=== PATIENT | female | born 1990 | race Caucasian/White ===

== ENCOUNTER 2017-01-09 16:32 | Emergency (ER) | payer SELFPAY ==
[2017-01-09 16:57] VITALS: BP 121/70
[2017-01-09] MEDS ORDERED: Ketorolac INJ* 60 MG/2 ML VIAL IM ONE (17:23)
--- NOTE | 2017-01-09 17:53 | UC ---
Lower Extremity/Ankle HPI - HPI Summary HPI Summary: pt presents with c/o right foot pain and swelling that began 1-2 wqeeks ago. 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 Pt reports today she was stretching her right foot and she heard a "pop" and had instant onset of pain to dorsal aspect of right foot. pt unable to move right toes secondary to pain. - History of Current Complaint Chief Complaint: UCLowerExtremity Stated Complaint: RT FOOT INJURY *7 DAYS Time Seen by Provider: 01/09/17 17:01 Hx Obtained From: Patient Hx Last Menstrual Period: 01/09/17 ?: No Onset/Duration: Gradual Onset, Lasting Days Severity Initially: Mild Severity Currently: Moderate Aggravating Factor(s): Standing, Ambulation Alleviating Factor(s): Rest, Elevation Able to Bear Weight: Yes - minimal - Allergies/Home Medications Allergies/Adverse Reactions: Allergies Allergy/AdvReac Type Severity Reaction Status Date / Time Tramadol Allergy See Comment Verified 01/09/17 16:51 Home Medications: Home Medications Escitalopram Oxalate [Lexapro 10 mg] 10 mg PO DAILY 01/09/17 [History Confirmed 01/09/17] Naproxen TAB* [Naprosyn 250 mg TAB*] 250 mg PO BID 01/09/17 [History Confirmed 01/09/17] Omeprazole CAP* [Prilosec CAP* 20 MG] 20 mg PO DAILY 01/09/17 [History Confirmed 01/09/17] PMH/Surg Hx/FS Hx/Imm Hx Previously Healthy: Yes - Surgical History Surgical History: Yes Surgery Procedure, Year, and Place: appy - Family History Known Family History: Positive: Other - positive for FM for arthralgia - Social History Alcohol Use: None Substance Use Type: None Substance Use Comment - Amount & Last Used: 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, sober 2 yrs Smoking Status (MU): Light Every Day Tobacco Smoker Type: Cigarettes Amount Used/How Often: 1/2 PPD Length of Time of Smoking/Using Tobacco: 15 yrs Review of Systems Constitutional: Negative Skin: Negative Eyes: Negative ENT: Negative Respiratory: Negative Cardiovascular: Negative Gastrointestinal: Negative Genitourinary: Negative Motor: Decreased ROM - right distal foot Neurovascular: Negative Musculoskeletal: Arthralgia, Edema - right foot, Myalgia Neurological: Negative Psychological: Negative All Other Systems Reviewed And Are Negative: Yes Physical Exam Triage Information Reviewed: Yes Appearance: Well-Appearing Vital Signs: Initial Vital Signs Temp 99.5 F 01/09/17 16:53 Pulse 102 01/09/17 16:53 Resp 18 01/09/17 16:53 BP 121/70 01/09/17 16:53 Pulse Ox 100 01/09/17 16:53 Vital Signs Reviewed: Yes Eye Exam: Normal Neck exam: Normal Respiratory Exam: Normal Musculoskeletal Exam: Other Musculoskeletal: Positive: Strength Limited @ - right foot, ROM Limited @ - right distal foot, Edema @ - right distal foot/toes, Neurological Exam: Normal Psychological Exam: Normal Skin Exam: Normal Lower Extremity Course/Dx - Differential Dx/Diagnosis Differential Diagnosis/HQI/PQRI: Sprain, Strain, Tendonitis Provider Diagnoses: right foot tendonitis Discharge - Discharge Plan Condition: Stable Disposition: HOME Prescriptions: predniSONE TAB* [Deltasone TAB*] 30 mg PO DAILY #12 tab Patient Education Materials: Arthralgia (ED), Tendinitis (ED) Forms: *Work Release Referrals: [facility] [place] [facility] [Outside] David Craig MD [Medical Doctor] - No Primary Care Phys,NOPCP [Primary Care Provider] -
== END 2017-01-09 17:56 | disposition home or self-care (01) ==
LOC: UCCORT 16:32
DX: M77.51 Other enthesopathy of right foot and ankle (principal); Z88.5 Allergy status to narcotic agent; F17.210 Nicotine dependence, cigarettes, uncomplicated
CPT/HCPCS: 96372; 99203; G0463; J1885

== ENCOUNTER 2017-03-27 10:04 | Emergency (ER) | payer SELFPAY ==
[2017-03-27 10:50] VITALS: BP 111/67
--- NOTE | 2017-03-27 11:08 | UC ---
Skin Complaint HPI - HPI Summary HPI Summary: Since yesterday there has been some right axilla tenderness. It has become worse today. - History of Current Complaint Chief Complaint: UCSkin Time Seen by Provider: 03/27/17 10:48 Stated Complaint: RIGHT ARMPIT BUMP/PAIN Hx Obtained From: Patient Hx Last Menstrual Period: 03/09/17 ?: No Onset/Duration: Gradual Onset, Lasting Hours Skin Exposure Onset/Duration: Days Ago Timing: Constant Onset Severity: Mild Current Severity: Moderate Location: Discrete Character: Pain, Redness, Raised, Painful Aggravating: Touch Alleviating: Nothing Associated Signs & Symptoms: Positive: Tenderness. Negative: Nausea, Vomiting, Diaphoresis, Weakness, Pallor, Shivering, Fever, Chills, Red Streaks - Allergy/Home Medications Allergies/Adverse Reactions: Allergies Allergy/AdvReac Type Severity Reaction Status Date / Time Tramadol Allergy See Comment Verified 03/27/17 10:23 Review of Systems Skin: Other - abscess. All Other Systems Reviewed And Are Negative: Yes PMH/Surg Hx/FS Hx/Imm Hx Previously Healthy: No - no prior abscess. 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, sober 2 yrs Smoking Status (MU): Light Every Day Tobacco Smoker Type: Cigarettes Amount Used/How Often: 1/2 PPD Length of Time of Smoking/Using Tobacco: 15 yrs Physical Exam Triage Information Reviewed: Yes Appearance: Well-Appearing, No Pain Distress, Well-Nourished Vital Signs: Initial Vital Signs Temp 98.4 F 03/27/17 10:17 Pulse 72 03/27/17 10:17 Resp 16 03/27/17 10:17 BP 111/67 03/27/17 10:17 Eye Exam: Normal ENT Exam: Normal Neck exam: Normal Respiratory Exam: Normal Cardiovascular Exam: Normal Abdominal Exam: Normal Musculoskeletal Exam: Normal Neurological Exam: Normal Psychological Exam: Normal Skin Exam: Other - right axilla, pea sized tender firm nodule without fluctuance. no streaking or crepitus. no surrounding or spreading redness. Course/Dx - Course Course Of Treatment: right axilla infected lymph node. no signs of drainable abcess thus far. she was made aware and understood that this may progress and need drainage if it does not go away with warm packs and antibiotics. she will have this rechecked in 2 days. - Differential Diagnoses - Skin Complaint Differential Diagnoses: Abscess, Allergic Reaction, Anaphylaxis, Angioedema, Cellulitis - Diagnoses Provider Diagnoses: right axillar cellulitis vs infected lymph node. Discharge - Discharge Plan Condition: Good Disposition: HOME Prescriptions: Sulfamethox/Trimethoprim DS* [Bactrim DS 800/160 TAB*] 1 tab PO BID #20 tab Patient Education Materials: Abscess (ED) Forms: *Work Release Referrals: Cisco Scott MD [Primary Care Provider] - If Needed
== END 2017-03-27 11:07 | disposition home or self-care (01) ==
LOC: UCCORT 10:04
DX: M79.621 Pain in right upper arm (principal); R22.31 Localized swelling, mass and lump, right upper limb; Z88.5 Allergy status to narcotic agent
CPT/HCPCS: 99212; G0463

== ENCOUNTER 2017-10-16 10:42 | Emergency (ER) | payer OTHER ==
[2017-10-16 11:00] VITALS: BP 127/66
--- NOTE | 2017-10-16 11:24 | RAD ---
INDICATION: Fall. Left foot pain COMPARISON: None TECHNIQUE: AP, lateral, and oblique views were obtained. FINDINGS: There is no acute bony change. There is mild degenerative change about the tarsometatarsal articulations. There is a minor hallux valgus deformity. The soft tissues are normal. IMPRESSION: NO ACUTE BONY FINDINGS
--- NOTE | 2017-10-16 11:25 | UC ---
Lower Extremity/Ankle HPI - HPI Summary HPI Summary: Pt presents with c/o lft foot pain s/p having a large dresser fall while carrying it on her left distal foot. C/O pain in left distal tarsals 2-3. - History of Current Complaint Chief Complaint: UCLowerExtremity Stated Complaint: LFT FOOT INJURY Time Seen by Provider: 10/16/17 10:49 Hx Obtained From: Patient Hx Last Menstrual Period: 01/09/17 ?: No Onset/Duration: Sudden Onset Pain Intensity: 6 Aggravating Factor(s): Standing, Ambulation Alleviating Factor(s): Rest, Elevation Able to Bear Weight: Yes - Risk Factors Gout Risk Factors: Negative - Allergies/Home Medications Allergies/Adverse Reactions: Allergies Allergy/AdvReac Type Severity Reaction Status Date / Time tramadol Allergy See Comment Verified 10/16/17 11:00 Home Medications: Home Medications Meloxicam 7.5 mg PO 10/16/17 [History] Multivitamin [Multivitamins] 1 cap PO 10/16/17 [History] PMH/Surg Hx/FS Hx/Imm Hx Previously Healthy: Yes - Surgical History Surgical History: Yes Surgery Procedure, Year, and Place: appy - Family History Known Family History: Positive: Other - positive for FMH for arthralgia - Social History Occupation: Works From/At Home Lives: With Family Alcohol Use: None Substance Use Type: None Substance Use Comment - Amount & Last Used: 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, sober 2 yrs Smoking Status (MU): Light Every Day Tobacco Smoker Type: Cigarettes Amount Used/How Often: 1/2 PPD Length of Time of Smoking/Using Tobacco: 15 yrs Have You Smoked in the Last Year: Yes Review of Systems Constitutional: Negative Skin: Bruising - left distal anterior foot Eyes: Negative ENT: Negative Respiratory: Negative Cardiovascular: Negative Gastrointestinal: Negative Genitourinary: Negative Motor: Decreased ROM, Weakness - left distal foot Neurovascular: Negative Musculoskeletal: Decreased ROM, Edema, Myalgia - left distal foot Neurological: Negative Psychological: Negative Is Patient Immunocompromised?: No All Other Systems Reviewed And Are Negative: Yes Physical Exam Triage Information Reviewed: Yes Appearance: Well-Appearing, Pain Distress Vital Signs: Initial Vital Signs Temp 99.0 F 10/16/17 10:55 Pulse 96 10/16/17 10:55 Resp 18 10/16/17 10:55 BP 127/66 10/16/17 10:55 Pulse Ox 99 10/16/17 10:55 Vital Signs Reviewed: Yes Eye Exam: Normal ENT Exam: Normal Neck exam: Normal Neck: Positive: Supple Respiratory: Positive: No respiratory distress Musculoskeletal: Positive: Strength Limited @ - distal left foot, ROM Limited @ - distal left foot Neurological Exam: Normal Psychological Exam: Normal Skin Exam: Other - bruising, distal left foot. Diagnostics - Laboratory Diagnostic Studies Completed/Ordered: FINDINGS: There is no acute bony change. There is mild degenerative change about the. tarsometatarsal articulations. There is a minor hallux valgus deformity. The soft tissues. are normal. IMPRESSION: NO ACUTE BONY FINDINGS - Radiology No standard instances Radiology Interpretation Completed By: Radiologist - FINDINGS: There is no acute bony change. There is mild degenerative change about the tarsometatarsal articulations. There is a minor hallux valgus deformity. The soft tissues are normal. IMPRESSION: NO ACUTE BONY FINDINGS Lower Extremity Course/Dx - Differential Dx/Diagnosis Differential Diagnosis/HQI/PQRI: Contusion, Fracture (Closed) Provider Diagnoses: left foot contusion Discharge - Discharge Plan Condition: Stable Disposition: HOME Patient Education Materials: Foot Contusion (ED), R.I.C.E. Treatment (ED) Referrals: David Craig MD [Medical Doctor] - Cisco Scott MD [Primary Care Provider] - If Needed
== END 2017-10-16 11:37 | disposition home or self-care (01) ==
LOC: UCCORT 10:42
DX: S90.32XA Contusion of left foot, initial encounter (principal); W20.8XXA Other cause of strike by thrown, projected or falling object, initial encounter; Y93.89 Activity, other specified; Y92.9 Unspecified place or not applicable; Z88.5 Allergy status to narcotic agent; F17.210 Nicotine dependence, cigarettes, uncomplicated
CPT/HCPCS: 99212; G0463

== ENCOUNTER 2018-02-05 15:54 | Emergency (ER) | payer OTHER ==
[2018-02-05 16:07] VITALS: BP 128/72
--- NOTE | 2018-02-05 16:15 | UC ---
Ear Complaint HPI - HPI Summary HPI Summary: Patient is a 27-year-old female with a 2 day history of right ear pain and decreased hearing from that ear. She has had nasal congestion postnasal drip for about 4-5 days. She has not had a fever. He denies any cough shortness of breath. - History of Current Complaint Chief Complaint: UCEar Stated Complaint: RT EAR COMPLAINT Time Seen by Provider: 02/05/18 16:04 Hx Obtained From: Patient Hx Last Menstrual Period: 01/10/18 Onset/Duration: Gradual Onset, Lasting Days Severity Currently: Moderate Pain Intensity: 7 Pain Scale Used: 0-10 Numeric Alleviating Factors: OTC Meds Associated Signs/Symptoms: Positive: Hearing Loss, URI Symptoms - Allergies/Home Medications Allergies/Adverse Reactions: Allergies Allergy/AdvReac Type Severity Reaction Status Date / Time tramadol Allergy See Comment Verified 02/05/18 16:04 Home Medications: Home Medications Naproxen [Naproxen 500 mg tab] 500 mg PO BID 02/05/18 [History Confirmed ] PMH/Surg Hx/FS Hx/Imm Hx Previously Healthy: Yes Other History Of: Hepatitis C - Surgical History Surgical History: Yes Surgery Procedure, Year, and Place: appy - Family History Known Family History: Positive: Other - positive for FMH for arthralgia - Social History Alcohol Use: None Substance Use Type: None Substance Use Comment - Amount & Last Used: 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, sober 2 yrs Smoking Status (MU): Light Every Day Tobacco Smoker Type: Cigarettes Amount Used/How Often: 1/2 PPD Length of Time of Smoking/Using Tobacco: 15 yrs Have You Smoked in the Last Year: Yes Review of Systems Constitutional: Negative Skin: Negative Eyes: Negative ENT: Ear Ache Respiratory: Negative Cardiovascular: Negative Gastrointestinal: Negative Genitourinary: Negative Motor: Negative Neurovascular: Negative Musculoskeletal: Negative Neurological: Negative Psychological: Negative Is Patient Immunocompromised?: No All Other Systems Reviewed And Are Negative: Yes Physical Exam Triage Information Reviewed: Yes Appearance: Well-Appearing, No Pain Distress, Well-Nourished Vital Signs: Initial Vital Signs Temp 98.5 F 02/05/18 16:03 Pulse 88 02/05/18 16:03 Resp 16 02/05/18 16:03 BP 128/72 02/05/18 16:03 Pulse Ox 99 02/05/18 16:03 Vital Signs Reviewed: Yes Eyes: Positive: Conjunctiva Clear ENT: Positive: Nasal congestion, Nasal drainage, TM bulging, TM red - R, Uvula midline. Negative: Hearing grossly normal - decreased hearing right ear, Tonsillar swelling, Tonsillar exudate Neck: Positive: Supple, Nontender, No Lymphadenopathy Respiratory: Positive: Lungs clear, Normal breath sounds, No respiratory distress Cardiovascular: Positive: RRR, No Murmur Musculoskeletal: Positive: ROM Intact, No Edema Neurological Exam: Normal Neurological: Positive: Alert Psychological Exam: Normal Skin Exam: Normal Ear Complaint Course/Dx - Differential Dx/Diagnosis Provider Diagnoses: right otitis media. viral URI Discharge - Sign-Out/Discharge Documenting (check all that apply): Discharge/Admit/Transfer - Discharge Plan Condition: Stable Disposition: HOME Prescriptions: Amoxicillin PO (*) [Amoxicillin 875 MG (*)] 875 mg PO BID #20 tab Patient Education Materials: Ear Infection (ED) Referrals: Cisco Scott MD [Primary Care Provider] - If Needed Additional Instructions: recheck in 2-3 days if not better recheck in 2 weeks if hearing not back to normal recheck for new or worsening symptoms - Billing Disposition and Condition Condition: STABLE Disposition: Home
== END 2018-02-05 16:23 | disposition home or self-care (01) ==
LOC: UCCORT 15:54
DX: H66.91 Otitis media, unspecified, right ear (principal); J06.9 Acute upper respiratory infection, unspecified; Z88.5 Allergy status to narcotic agent; F17.210 Nicotine dependence, cigarettes, uncomplicated
CPT/HCPCS: 99212; G0463